=== PATIENT | female | born 1975 | race Caucasian/White ===

== ENCOUNTER 2020-06-13 16:49 | Emergency (ER) | payer OTHER ==
[~2020-06-13 16:49] MED LIST: CYCLOBENZAPRINE10 MG PO; DULOXETINE HCL60 MG PO; ENOXAPARIN40 MG/0.4 SC; LEVOTHYROXINE100 MCG PO; NORCO 5-325 TA1 EACH PO; VITAMIN D250000 UNIT PO; VOLTAREN EC 5050 MG PO; WELLBUTRIN SR150 M1 PO
[2020-06-13 19:22] LABS: HEMOGLOBIN 12.5 gm/dl (12.3-15.3); RED BLOOD COUNT 4.29 M/UL (4.00-5.10); WHITE BLOOD COUNT 7.6 K/UL (4.5-11.0)
[2020-06-13 19:40] LABS: BUN/CREATININE RATIO 24 (0-10)
[2020-06-13] MEDS ORDERED: BACTRIM DS TAB1 EACH PO (21:24)
[2020-06-13] MEDS ORDERED: KEFLEX CAP 250250 MG PO (21:24)
== END 2020-06-13 21:57 | disposition home or self-care (01) ==
LOC: ER1 16:49
PROVIDERS: Physician Assistant
DX: L03.115 Cellulitis of right lower limb (principal); Z90.89 Acquired absence of other organs
CPT/HCPCS: 73590; 73610; 73630; 80053; 82550; 82553; 83605; 83874; 84484; 85025; 85379; 85652; 86140; 87040; 99283